=== PATIENT | female | born 1990 | race African-American/Black ===

== ENCOUNTER 2018-10-26 04:19 | Emergency (ER) | payer SELFPAY ==
[~2018-10-26] VITALS: Ht 152.4 cm; Wt 116.8 kg
[2018-10-26 04:22] VITALS: BP 121/80
== END 2018-10-26 05:03 | disposition home or self-care (01) ==
LOC: ED 05:01
DX: K01.1 Impacted teeth (principal); K08.89 Other specified disorders of teeth and supporting structures
CPT/HCPCS: 99283

== ENCOUNTER 2019-11-07 10:39 | Emergency (ER) | payer BC, OTHER ==
[~2019-11-07] VITALS: Ht 160 cm; Wt 107.0 kg
[2019-11-07 10:43] VITALS: BP 119/72
--- NOTE | 2019-11-07 11:46 | NUR ---
PT GIVEN DC INSTRUCTIONS AND SCRIPT, EDUCATED REGARDING RX FOR CLEOCIN AND DENTAL FU. PT A&O, RESPS EVEN AND UNLABORED, AMB TO DC DESK WITH STEADY GAIT. ALL QUESTINOS ANSWERED.
== END 2019-11-07 11:47 | disposition home or self-care (01) ==
LOC: ED 11:30
DX: K08.89 Other specified disorders of teeth and supporting structures (principal)
CPT/HCPCS: 99283

== ENCOUNTER 2020-10-03 13:58 | Emergency (ER) | payer BC, OTHER ==
[~2020-10-03] VITALS: Ht 160 cm; Wt 123.2 kg
--- NOTE | 2020-10-03 17:56 | NUR ---
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
--- NOTE | 2020-10-03 18:09 | NUR ---
ASSUMED CARE OF PT. PROVIDER AT BEDSIDE FOR EVALUATION. PT IS 30F COMPLAINING OF LIGHTENING LIKE SHOOTING PAIN/HEADACHES THAT HAVE BEEN WORSENING FOR 3 WEEKS. THIS INCLUDES BLURRY VISION. NO HISTORY OF HTN, HOWEVER SHE IS VERY HYPERTENSIVE HERE. 181/117. AT BEDSIDE, CALL LIGHT WITHIN REACH, CYCLING VITALS AND CONTINUOUS SPO2/ NO ADDITIONAL NEEDS VERBALIZED AT THIS TIME.
--- NOTE | 2020-10-03 18:24 | NUR ---
URINE COLLECTED AND SENT TO LAB.
[2020-10-03] MEDS ORDERED: AMLODIPINE 5 MG TABLET PO ONE (18:30)
[2020-10-03 18:32] LABS: HCG UR SG 1.027 (1.003-1.030)
[2020-10-03] MEDS ORDERED: AMLODIPINE 5 MG TABLET ONE ×2 (18:42→19:04)
--- NOTE | 2020-10-03 18:48 | NUR ---
NEW BP WITHIN RANGE, MEDICATION CANCELLED. AT BEDSIDE AND PROVIDER AT BEDSIDE TO DISCUSS PLAN OF CARE. CALL LIGHT WITHIN REACH.
[2020-10-03] MEDS ORDERED: CARBAMAZEPINE 200 MG TABLET PO ONE (19:00)
--- NOTE | 2020-10-03 19:02 | NUR ---
REPORT GIVEN TO NATA AVINA AT SHIFT CHANGE
[2020-10-03] MEDS ORDERED: CARBAMAZEPINE 200 MG TABLET ONE (19:04)
[2020-10-03 19:37] VITALS: BP 138/90
== END 2020-10-03 19:39 | disposition home or self-care (01) ==
LOC: ED 18:05
DX: I10 Essential (primary) hypertension (principal); G50.0 Trigeminal neuralgia; R94.31 Abnormal electrocardiogram [ECG] [EKG]
CPT/HCPCS: 70450; 81025; 93005; 99285

== ENCOUNTER 2020-10-05 10:47 | Emergency (ER) | payer BC ==
[~2020-10-05] VITALS: Ht 160 cm; Wt 122.0 kg
[2020-10-05] MEDS ORDERED: SODIUM CHLORIDE FLUSH 10ML SYR IVF ONE (11:30)
[2020-10-05] MEDS ORDERED: SODIUM CHLORIDE 0.9% 1,000 ML IV ONE (11:30)
[2020-10-05] MEDS ORDERED: SODIUM CHLORIDE 0.9% 1,000ML IVBOLUS ONE (11:30)
[2020-10-05 11:35] LABS: BASOPHILS % (AUTO) 1 % (0-1); EOSINOPHILS % (AUTO) 1 % (1-7); LYMPHOCYTES % (AUTO) 23 % (22-44); MEAN CORPUSCULAR HEMOGLOBIN 28.6 pg (27.0-34.8); MEAN CORPUSCULAR HGB CONC 33.8 g/dL (32.4-35.8); MEAN PLATELET VOLUME 6.7 fL (7.4-10.4); MONOCYTES % (AUTO) 4 % (2-9); NEUTROPHILS % (AUTO) 71 % (42-75); PLATELET COUNT 434 x10^3/uL (130-400); RED BLOOD COUNT 4.63 x10^6/uL (3.82-5.3); RED CELL DISTRIBUTION WIDTH 13.9 % (9.6-15.2)
--- NOTE | 2020-10-05 11:36 | NUR ---
IMPROVEMENT MANAGER: RECEIVED CALL FROM LAB, CHEMISTRY DRAW HEMOLYZED, NEED REDRAW.
[2020-10-05 11:37] LABS: MD NO
[2020-10-05 11:47] VITALS: BP 122/74
[2020-10-05 12:08] LABS: ALBUMIN 3.2 g/dL (3.4-5.0); ANION GAP 3 mmol/L (5-15); CALCIUM 8.4 mg/dL (8.5-10.1); CHLORIDE 113 mmol/L (98-107)
[2020-10-05 12:14] LABS: ALANINE AMINOTRANSFERASE 17 U/L (12-78); ALKALINE PHOSPHATASE 77 U/L (45-117); BILIRUBIN,TOTAL 0.2 mg/dL (0.2-1.0); CREATININE 0.88 mg/dL (0.55-1.02)
== END 2020-10-05 14:37 | disposition other institution (70) ==
LOC: ED 11:23
DX: R55 Syncope and collapse (principal); R42 Dizziness and giddiness; R00.0 Tachycardia, unspecified; R51.9 Headache, unspecified
CPT/HCPCS: 36415; 80053; 85025; 93005; 96360; 96361; 99284; J7030

== ENCOUNTER 2021-06-10 13:31 | Emergency (ER) | payer BC ==
[2021-06-10 14:34] VITALS: BP 139/97
[2021-06-10] MEDS ORDERED: DEXAMETHASONE 4 MG/ML, 1ML ONE (14:50)
[2021-06-10] MEDS ORDERED: DEXAMETHASONE 4 MG/ML, 1ML PO ONE (15:00)
[2021-06-10] MEDS ORDERED: PLEASE ENTER HEIGHT AND WEIGHT MC SCH (15:00)
== END 2021-06-10 17:19 | disposition home or self-care (01) ==
LOC: ED 17:15
DX: J02.0 Streptococcal pharyngitis (principal); Z20.822 Contact with and (suspected) exposure to COVID-19; R06.02 Shortness of breath
CPT/HCPCS: 71045; 87880; 99284; J1100; U0003; U0005